=== PATIENT | male | born 1990 | race Caucasian/White ===

== ENCOUNTER 2016-10-19 03:46 | Emergency (ER) | payer OTHER ==
[~2016-10-19] VITALS: Ht 177.8 cm; Wt 108.9 kg
[~2016-10-19 03:46] MED LIST: BACTRIM DS TAB1 EACH PO; CITRATE OF MAG296 ML PO; DULCOLAX5 MG PO; FLEET ENEMA118 ML RC; IBUPROFEN 800800 MG PO; NORCO 5-325 TA1 EACH PO; ZPAK PO
[2016-10-19] MEDS ORDERED: NEXIUM40 MG PO (03:57)
[2016-10-19 04:01] LABS: URINE BILIRUBIN 2+ (Negative); URINE BLOOD 2+ (Negative); URINE COLOR YELLOW; URINE GLUCOSE-RANDOM* NEGATIVE (Negative); URINE KETONES 3+ (Negative); URINE LEUKOCYTES-REFLEX NEGATIVE (Negative); URINE PROTEIN (DIPSTICK) 3+ (Negative); URINE SPECIFIC GRAVITY >= 1.030 (1.003-1.035)
[2016-10-19] MEDS ORDERED: PHENERGAN 25 MG25 M1 PO (04:04)
[2016-10-19] MEDS ORDERED: BENTYL 20 MG TA20 M1 PO (04:04)
[2016-10-19 04:11] LABS: ICTOTEST (BILI CONFIRMATORY) Positive (Negative)
[2016-10-19 04:14] LABS: HEMATOCRIT 47.7 % (42.0-52.0); HEMOGLOBIN 16.8 gm/dL (14.0-18.0); MCH 34.6 pg (26.0-34.0); MCHC 35.1 g/dL (28.0-37.0); MCV 98.4 fL (80.0-100.0); PLATELET COUNT 206 thou/uL (150-400); RBC 4.85 mil/uL (4.50-6.00); RDW 15.2 % (10.5-14.5); WBC 7.8 thou/uL (4.0-11.0)
[2016-10-19 04:16] LABS: MANUAL DIFF YES
[2016-10-19 04:16] LABS: SQUAMOUS 0-3 Few /LPF (0-3)
[2016-10-19 04:17] LABS: CRYSTALS None Seen /LPF (None Seen); HYALINE CASTS 4-10 Moderate /LPF (None Seen); URINE RBC 0-2 Rare /HPF (0-2); URINE WBC-REFLEX 0-5 Rare /HPF (0-5)
[2016-10-19 04:22] LABS: CALCIUM 9.2 mg/dL (8.5-10.1); CREATININE 1.3 mg/dL (0.7-1.3); POTASSIUM 4.2 mmol/L (3.5-5.1)
[2016-10-19 04:27] LABS: ALBUMIN 4.2 g/dL (3.4-5.0); TOTAL BILIRUBIN 1.2 mg/dL (<0.1-1.0); TOTAL PROTEIN 8.5 g/dL (6.4-8.2)
[2016-10-19 04:56] LABS: ABSOLUTE NEUTROPHILS 6.6 thou/uL (1.4-8.2); TOTAL CELL COUNT 100
[2016-10-19 04:58] LABS: AMP/METHAMP Negative (Negative); BARBITURATES Negative (Negative); BENZODIAZEPINES POSITIVE (Negative); COCAINE Negative (Negative); METHADONE Negative (Negative); OPIATES Negative (Negative); PCP Negative (Negative); THC POSITIVE (Negative)
[2016-10-19 06:21] VITALS: BP 135/76
== END 2016-10-19 06:22 | disposition home or self-care (01) ==
LOC: ER 03:46
PROVIDERS: Emergency Medicine
DX: R19.7 Diarrhea, unspecified (principal); R11.2 Nausea with vomiting, unspecified; R10.9 Unspecified abdominal pain; F17.210 Nicotine dependence, cigarettes, uncomplicated; F10.99 Alcohol use, unspecified with unspecified alcohol-induced disorder